=== PATIENT | male | born 1965 ===

== ENCOUNTER 2023-03-09 11:08 | Day surgery (SDC) | payer OTHER ==
[~2023-03-09] VITALS: Ht 177.8 cm; Wt 99.8 kg
[~2023-03-09 11:08] MED LIST: LOSARTAN-HCTZ1 EACH PO
== END 2023-03-09 22:25 | disposition home or self-care (01) ==
LOC: CIR.AMB 11:08
PROVIDERS: ATTEND Orthopaedic Surgery Hand Surgery
DX: G56.01 Carpal tunnel syndrome, right upper limb (principal); E11.9 Type 2 diabetes mellitus without complications; E78.00 Pure hypercholesterolemia, unspecified; I10 Essential (primary) hypertension; Z20.822 Contact with and (suspected) exposure to COVID-19